=== PATIENT | female | born 1975 | race Caucasian/White ===

== ENCOUNTER → 2017-05-20 | Outpatient (CLI) | payer BC ==
--- NOTE | 2017-05-20 17:35 | KCIC ---
History: Routine screening. Technique: Bilateral digital mammographic routine views were obtained with CAD - computer aided detection. Comparison: May 19, 2016. Findings: Breast Tissue Density B :The breast tissue is composed of mixed fatty and fibroglandular tissue. There are no suspicious masses, microcalcifications or areas of architectural distortion. Impression: Negative mammogram. BI-RADS Category 1: Negative. Normal interval followup. A mammogram does not have 100% sensitivity and therefore a negative imaging study should not delay further work up of a suspicious abnormality. The patient will receive a letter with the results in the mail. Patient information is entered into the reminder system with a target due date for the next screening mammogram. The patient will receive a reminder. "Our facility is accredited by the [employer] Mammography [employer]." Electronically signed by: Mak Jacobs III, MD (05/20/2017 5:32 PM) [id number]
== END | disposition home or self-care (01) ==
LOC: KCIC MAMMO 10:16
PROVIDERS: ATTEND Family Medicine
DX: Z12.31 Encounter for screening mammogram for malignant neoplasm of breast (principal)
CPT/HCPCS: G0202; 77067

== ENCOUNTER → 2018-05-23 | Outpatient (CLI) | payer BC ==
--- NOTE | 2018-05-23 13:25 | KCIC ---
Bilateral digital screening mammograms with 3-D tomosynthesis: Reason for examination: Routine screening. Comparison is made to previous studies dated 05/20/2017 and 05/19/2016. Bilateral mammograms in CC and oblique projections were obtained with 2-D imaging and 3-D tomosynthesis imaging on a [employer] Inspiration unit and reviewed on the workstation. Interpretation was made with the benefit of CAD. The skin and nipples show no abnormalities. No abnormal axillary lymph nodes are seen. The breast parenchyma is predominantly fatty. (Breast density: Category A.) There are no dominant masses, suspicious calcifications or architectural distortion. Impression: No evidence of malignancy. Recommend routine screening. BI-RAD Category 1: Negative. "Our facility is accredited by the [employer] Mammography [employer]." This patient's information has been entered into a reminder system for the patient to be notified with the results of her examination and a target date for the next mammogram. Electronically signed by: Bernarda Manzo MD (05/23/2018 1:21 PM) [id number]
== END | disposition home or self-care (01) ==
LOC: KCIC MAMMO 11:13
PROVIDERS: ATTEND Family Medicine
DX: Z12.31 Encounter for screening mammogram for malignant neoplasm of breast (principal)
CPT/HCPCS: 77063; 77067

== ENCOUNTER → 2019-05-24 | Outpatient (CLI) | payer BC ==
--- NOTE | 2019-05-24 17:20 | KCIC ---
Thyroid ultrasound HISTORY: Hoarseness of voice. Trouble swallowing. Left upper neck pain. FINDINGS: Right thyroid: Measures 4.6 x 1.2 x 1.2 cm. Homogeneous echotexture without focal mass. Blood flow appears intact. Left thyroid: Measures 3.4 x 0.9 x 1.0 cm. Homogeneous echotexture without focal lesion. Blood flow appears intact. Thyroid isthmus measures 2 mm. Scanning was performed in the area of pain, without evidence of fluid collection or other abnormality in that region. IMPRESSION: Unremarkable thyroid ultrasound. Electronically signed by: Juan Tidwell MD (05/24/2019 5:17 PM) [facility]
== END | disposition home or self-care (01) ==
LOC: KCIC US 15:25
PROVIDERS: ATTEND Nurse Practitioner Family
DX: R49.0 Dysphonia (principal); R13.10 Dysphagia, unspecified
CPT/HCPCS: 76536

== ENCOUNTER → 2019-05-24 | Outpatient (CLI) | payer BC ==
--- NOTE | 2019-05-25 15:47 | RAD ---
DATE: 05/24/2019 EXAM: MAMMO FORD SCREENING BILATERAL HISTORY: Routine screening COMPARISON: 05/19/2016, 05/20/2017, 05/23/2018 mammographic exams This study was interpreted with the benefit of Computerized Aided Detection (CAD). Breast Density: SCATTERED The breast parenchyma shows scattered fibroglandular densities. Breast parenchyma level B. FINDINGS: No suspicious calcifications, masses, or distortion. IMPRESSION: Stable BI-RADS CATEGORY: 1 NEGATIVE RECOMMENDED FOLLOW-UP: 12M 12 MONTH FOLLOW-UP PQRS compliance statement: Patient information was entered into a reminder system with a target due date for the next mammogram. Mammography is a sensitive method for finding small breast cancers, but it does not detect them all and is not a substitute for careful clinical examination. A negative mammogram does not negate a clinically suspicious finding and should not result in delay in biopsying a clinically suspicious abnormality. "Our facility is accredited by the [employer] Mammography [employer]."
== END | disposition home or self-care (01) ==
LOC: MAMMO 09:39
PROVIDERS: ATTEND Family Medicine
DX: Z12.31 Encounter for screening mammogram for malignant neoplasm of breast (principal)
CPT/HCPCS: 77063; 77067

== ENCOUNTER → 2020-06-05 | Outpatient (CLI) | payer BC ==
--- NOTE | 2020-06-12 10:58 | RAD ---
DATE: 06/05/2020 8:22 AM EXAM: MAMMO FORD SCREENING BILATERAL HISTORY: Screening COMPARISON: 05/24/2019 Bilateral CC and MLO views of the breasts were performed. Bilateral breast tomosynthesis was performed in CC and MLO projections. This study was interpreted with the benefit of Computerized Aided Detection (CAD). FINDINGS: Breast Density: FATTY The Breast Parenchyma is primarily fatty replaced. Breast parenchyma level density A. No suspicious masses, microcalcifications or architectural distortion is present to suggest malignancy in either breast. The visualized axillae are unremarkable. IMPRESSION: No mammographic evidence of malignancy. BI-RADS CATEGORY: 1 NEGATIVE RECOMMENDED FOLLOW-UP: 12M 12 MONTH FOLLOW-UP Annual screening mammography is recommended, unless clinically indicated sooner based on symptoms or change in physical exam. PQRS compliance statement: Patient information was entered into a reminder system with a target due date for the next mammogram. Mammography is a sensitive method for finding small breast cancers, but it does not detect them all and is not a substitute for careful clinical examination. A negative mammogram does not negate a clinically suspicious finding and should not result in delay in biopsying a clinically suspicious abnormality. "Our facility is accredited by the [employer] Mammography [employer]."
== END ==
LOC: MAMMO 08:15
PROVIDERS: ATTEND Nurse Practitioner Family
DX: Z12.31 Encounter for screening mammogram for malignant neoplasm of breast (principal)
CPT/HCPCS: 77063; 77067

== ENCOUNTER → 2021-06-11 | Outpatient (CLI) | payer BC ==
--- NOTE | 2021-06-12 14:49 | KCIC ---
Bilateral digital screening mammograms with 3-D tomosynthesis: Reason for examination: Routine screening. Comparison is made to previous studies dated back to 05/19/2016. Bilateral mammograms in CC and oblique projections were obtained with 2-D imaging and 3-D tomosynthes is imaging on a [employer] Inspiration unit and reviewed on the workstation. Interpretation was made wit h the benefit of CAD. The skin and nipples show no abnormalities. No abnormal axillary lymph nodes are seen. The breast par enchyma shows scattered fatty and fibroglandular density. (Breast density: Category B.) There are no dominant masses, suspicious calcifications or architectural distortion. A few benign calcifications a re again seen at the 6:00 position anteriorly in the right breast and appear to be stable. Impression: No evidence of malignancy. Recommend routine screening. BI-RAD Category 2: Benign. "Our facility is accredited by the [employer] Mammography [employer]." This patient's information has been entered into a reminder system for the patient to be notified wit h the results of her examination and a target date for the next mammogram. Electronically signed by: Bernarda Manzo MD (06/12/2021 2:46 PM) [email or web address]
== END ==
LOC: KCIC MAMMO 10:57
PROVIDERS: ATTEND Nurse Practitioner Family
DX: Z12.31 Encounter for screening mammogram for malignant neoplasm of breast (principal)
CPT/HCPCS: 77063; 77067